=== PATIENT | female | born 1995 | race Two or more races ===

== ENCOUNTER 2018-06-30 19:50 | Inpatient (IN) | payer SELFPAY ==
[2018-06-30] MEDS ORDERED: Nalbuphine 20 MG/ML 1 ML Syringe IVPUSH PRN (21:19)
[2018-06-30] MEDS ORDERED: Sodium Chloride 0.9% 10 ML Syringe FLUSH PRN (21:19)
[2018-06-30] MEDS ORDERED: Oxytocin/Lactated Ringers 10 UNIT/1,000 ML BAG IV SCH ×2 (21:30→23:36)
[2018-06-30] MEDS ORDERED: Lidocaine 1.5% with EPINEPHrine 1:200,000 5 ML Amp ONE (22:00)
[2018-06-30] MEDS ORDERED: Bupivacaine 0.25% 10 ML SDV ONE (22:00)
[2018-06-30] MEDS ORDERED: fentaNYL 100 MCG/2 ML SDV EPIDUR PRN (22:24)
[2018-06-30] MEDS ORDERED: ePHEDrine 50 MG/ML SDV IVPUSH PRN (22:24)
[2018-06-30] MEDS ORDERED: diphenhydrAMINE 50 MG/ML SDV IVPUSH PRN (22:24)
[2018-06-30] MEDS ORDERED: Ondansetron 4 MG/2 ML SDV IVPUSH PRN (22:24)
--- NOTE | 2018-06-30 22:24 | PCM.PREANE ---
Preanesthetic Assessment - Procedure Proposed Procedure: CHANTAL - Anesthesia/Transfusion/Family Hx Anesthesia History: No Prior Anesthesia Family History of Anesthesia Reaction: No Transfusion History: No Prior Transfusion(s) - Review of Systems General: No Symptoms Pulmonary: No Symptoms Cardiovascular: No Symptoms Gastrointestinal: No Symptoms Neurological: No Symptoms Other: Reports: None - Physical Assessment NPO Status Date: 06/30/18 NPO Status Time: 20:00 O2 Sat by Pulse Oximetry: 97 Respiratory Rate: 16 Vital Signs: Last Vital Signs Temp 36.8 C 06/30/18 21:19 Pulse 76 06/30/18 21:19 Resp 16 06/30/18 21:19 BP 111/76 06/30/18 21:19 Pulse Ox 97 06/30/18 21:19 Height: 1.57 m Weight: 70.307 kg ASA Class: 2 Mental Status: Alert & Oriented x3 Airway Class: Mallampati = 2 Dentition: Reports: Normal Dentition Thyro-Mental Finger Breadths: 3 Mouth Opening Finger Breadths: 3 ROM/Head Extension: Full Lungs: Clear to Auscultation, Normal Respiratory Effort Cardiovascular: Regular Rate, Regular Rhythm - Lab Values: Laboratory Last Values WBC 10.07 K/mm3 (3.98-10.04) H 06/30/18 20:30 RBC 4.56 M/mm3 (3.98-5.22) 06/30/18 20:30 Hgb 13.4 gm/L (11.2-15.7) 06/30/18 20:30 Hct 40.4 % (34.1-44.9) 06/30/18 20:30 MCV 88.6 fl (79.4-94.8) 06/30/18 20:30 MCH 29.4 pg (25.6-32.2) 06/30/18 20:30 MCHC 33.2 g/dl (32.2-35.5) 06/30/18 20:30 RDW Std Deviation 43.7 fL (36.4-46.3) 06/30/18 20:30 Plt Count 248 K/mm3 (182-369) 06/30/18 20:30 MPV 12.8 fl (9.4-12.3) H 06/30/18 20:30 - Allergies Allergies/Adverse Reactions: Allergies Allergy/AdvReac Type Severity Reaction Status Date / Time No Known Allergies Allergy Verified 06/30/18 21:19 - Blood Blood Available: No Product(s) Available: None - Anesthesia Plan Pre-Op Medication Ordered: None - Acknowledgements Anesthesia Type Planned: Epidural Pt an Appropriate Candidate for the Planned Anesthesia: Yes Alternatives and Risks of Anesthesia Discussed w Pt/Guardian: Yes Pt/Guardian Understands and Agrees with Anesthesia Plan: Yes PreAnesthesia Questionnaire - Past Health History Medical/Surgical History: Denies 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
[2018-06-30] MEDS ORDERED: fentaNYL/Bupivacaine-NS 2 MCG/ML-0.125%/PF 100 ML Bag EP SCH (22:30)
[2018-06-30] MEDS: Lactated Ringers 1,000 ML IV SCH (23:53)
[2018-07-01] MEDS: Lactated Ringers 1,000 ML IV SCH ×2 (02:46→04:07)
--- NOTE | 2018-07-01 06:56 | HP ---
DATE OF ADMISSION: 06/30/2018 ADMISSION DIAGNOSIS: 40 and 0/7th weeks intrauterine , spontaneous rupture of membranes, early active labor. HISTORY OF PRESENT ILLNESS: The patient is a 23-year-old 1, para 0, female with an MODE of 07/05/2018 per ultrasound done at her first place of care in [place]. This places her at 40 and 0/7 weeks' gestational age. That ultrasound is supported by 2 other ultrasounds done on 02/11/2018 and 03/11/2018. She reports a small gush of fluid on the morning of 06/29/2018. Has continued to have a small amount of leakage since that time. She is kameron every 10-15 minutes. Her cervix has changed from a dilation of 1-2 cm, 50% effaced, soft, - 2, mid position to 4 cm, 80% effaced, -2 station, mid position, and cephalic presentation. heart tones are reassuring. Contractions occurring every 10-15 minutes. Mild to moderate in intensity. 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 MODE 07/05/2018 per first ultrasound. COURSE: The patient transferred her care to our clinic on 02/02/2018 at 18 and 6/7 weeks. Size correlated with dates at that time. She was seen for regular care. Her first weight was 137.4 pounds. Her final weight was 154.4 pounds for a 37-pound weight gain. course is unremarkable. There is a language barrier as the patient only speaks Occitan. She has a friend who does a fair amount of translation for her. The patient had first ultrasound at 20 and 0/7 weeks, which showed right-sided choroid plexus cyst, 7 mm in diameter. Also had an eccentric cord insertion. That was followed up a month later and choroid plexus cyst was no longer seen. No mention of eccentric cord at that time. Her vital signs were stable throughout the course. Her fundal height growth was appropriate. Baby was in vertex presentation. Her group B strep screen is negative. She had a normal 1-hour GTT. Her [place] depression screen score was 0 on a scale of 30. Chlamydia retest was negative, having been positive early in the and for which she received treatment. LABORATORY TESTING: In shows blood to be O positive with a negative antibody screen. Initial hematocrit was 38.1. She is rubella immune. RPR is nonreactive. Culture was unremarkable. HIV and hepatitis B surface antigen were both negative. Chlamydia and gonorrhea were positive and negative respectively. The patient was treated per protocol. One-hour GTT was 91. Second trimester hemoglobin was 12.6 and platelets were 267,000. Group B strep screen was negative. ALLERGIES: None. CURRENT MEDICATIONS: vitamins 1 p.o. daily. PAST MEDICAL HISTORY: Unremarkable. FAMILY HISTORY: Mother is alive with kidney disease, on dialysis, lives in [place]. Father is alive and well. Two brothers and 1 sister are alive and well. Maternal grandfather is secondary to an assassination. Maternal grandmother is secondary to an assassination. Paternal grandfather is alive and well. Paternal grandmother is alive and well. Family history of cancer, none. No -related problems. SOCIAL HISTORY: The patient is . is Remi Dominguez. They live in [place], [place]. She is a [id number] . No high school education. She speaks Occitan. No significant use of alcohol, drugs, or tobacco noted. REVIEW OF SYSTEMS: GENERAL: The patient is a well-developed, well-nourished, pleasant female who appears in good spirits. HEENT: Unremarkable. SKIN: Unremarkable. CARDIOVASCULAR: No chest pain or exercise intolerance. RESPIRATORY: No shortness of breath or infectious symptoms. BREASTS: Changes associated with . The patient plans to breast feed. GI: Negative. : Changes associated with including increased fundal height. EXTREMITIES/MUSCULOSKELETAL: Occasional bilateral lower extremity edema. NEUROLOGICAL: Negative. PHYSICAL EXAMINATION: GENERAL: The patient is a well-developed, well-nourished, pleasant female, in no acute distress. She speaks Occitan only. On last evaluation clinic on 06/27/2018, her weight was 154.4 pounds. Blood pressure 107/60. heart rate was 145. Height is 5 feet 2 inches. Pregravid weight was 137.4. Pregravid body mass index was 24.1. SKIN: Warm and dry without lesions. HEENT: Neck and back within normal limits. LUNGS: Clear with good breath sounds in all lung isabel. CARDIOVASCULAR: Regular rate and rhythm without murmurs. BREASTS: Exam is deferred. ABDOMEN: Protuberant with this with last fundal height in clinic at 38 cm. Baby in vertex presentation. Cervix is 4 cm, 80% effaced, -2 station, mid position, soft, cephalic presentation, evidence of rupture of membranes grossly. EXTREMITIES AND NEUROLOGICAL: Grossly within normal limits. ASSESSMENT: 1. 40 and 0/7th week intrauterine , rupture of membranes possibly since yesterday morning, which is 36 hours. The patient in early labor with contractions every 10-15 minutes. 2. Group B strep screen negative. 3. The patient is okay with epidural as labor analgesia. 4. The patient plans to breastfeed. PLAN: 1. We will recommend augmentation of labor because of the patient's duration of rupture of membranes and increased risk of infection. 2. Group B strep is negative. Therefore, no prophylactic antibiotics are necessary. 3. Epidural p.r.n. for labor and analgesia. 4. Support incision. 5. CBC and RPR per protocol. MMODAL /[id number]
--- NOTE | 2018-07-01 11:59 | PCM.SN ---
- Free Text/Narrative Note: Mala is a 23-year-old 1 now para 1001 female with an MODE of 06/30/2018 admitted last evening 06/30/2018 in active labor with spontaneous rupture membranes. Underwent epidural for labor analgesia. She slowly progressed throughout the night and became completely dilated at approximately 1030 hrs. on 07/01/2018. She pushed for approximate 1 hour. She was noted at the end of the labor to have meconium-stained amniotic fluid. She then delivered a viable, fonseca, female with Apgars of 8 and 9, weight of 3030 g (6 pounds, 10.9 ounces), a length of 19.0 inches in a left occiput anterior position. Baby was placed on mom's abdomen for a moment while the cord was clamped 2 and then cut by the baby's father. Taken to the warmer immediately thereafter for Dr. Fernández and to attend to the baby because of the meconium- stained amniotic fluid. The perineum had a small first-degree laceration which was repaired with 3-0 Monocryl suture in 2 interrupted [id number] stitches. Epidural was used for anesthetic. Umbilical cord had 3 vessels. Cord blood was obtained. The placenta delivered in a Arriaza presentation, appeared complete and intact and was discarded per patient desire. Estimated blood loss was 100 mL. Patient plans to breast-feed. Condition: Good
[2018-07-01] MEDS ORDERED: Witch Hazel Medicated Pads 100/Jar TOP PRN (13:32)
[2018-07-01] MEDS ORDERED: Docusate Sodium 100 MG Cap PO PRN (13:32)
[2018-07-01] MEDS ORDERED: Acetaminophen 325 MG Tab PO PRN (13:32)
[2018-07-01] MEDS ORDERED: Benzocaine/Menthol 20%-0.5% Spray 56 GM Canister TOP PRN (13:32)
[2018-07-01] MEDS ORDERED: Lanolin 100% Cream 7 GM Tube TOP PRN (13:32)
[2018-07-01] MEDS: Ibuprofen 600 MG Tab PO PRN (14:52)
[2018-07-02] MEDS: Ibuprofen 600 MG Tab PO PRN ×2 (01:23→19:53)
[2018-07-02] MEDS ORDERED: Prenatal Multivitamin with Calcium/Folic Acid/Iron Tab PO SCH (09:00)
--- NOTE | 2018-07-02 09:10 | PCM.SN ---
- Free Text/Narrative Note: note: Patient is doing well in the period. Minimal lochia, voiding well, ambulated without problems. Nursing without concerns. Patient is afebrile, vital signs are stable Abdomen is flat, soft, uterus is below the umbilicus and is firm and nontender. Legs are nontender. Assessment: recovery going well. Plan: Routine care. Patient be discharged home within the next 24-48 hours.
--- NOTE | 2018-07-02 20:42 | PCM48HPAN ---
Post Anesthesia Note - EVALUATION WITHIN 48HRS OF ANESTHETIC Vital Signs in Normal Range: Yes Patient Participated in Evaluation: Yes Respiratory Function Stable: Yes Airway Patent: Yes Cardiovascular Function Stable: Yes Hydration Status Stable: Yes Pain Control Satisfactory: Yes Nausea and Vomiting Control Satisfactory: Yes Mental Status Recovered: Yes Resp Rate: 16
--- NOTE | 2018-07-03 07:53 | PCM.DCSUM1 ---
Discharge Summary - Hospital Course Free Text/Narrative:: Mala is a 23-year-old 1 now para 1001 female with an MODE of 06/30/2018 admitted on 06/30/2018 in active labor with spontaneous rupture membranes. Underwent epidural for labor analgesia. She slowly progressed throughout the night and became completely dilated at approximately 1030 hrs. on 07/01/2018. She pushed for approximate 1 hour. She was noted at the end of the labor to have meconium-stained amniotic fluid. She then delivered a viable, fonseca, female with Apgars of 8 and 9, weight of 3030 g (6 pounds, 10.9 ounces), a length of 19.0 inches in a left occiput anterior position. Baby was placed on mom's abdomen for a moment while the cord was clamped 2 and then cut by the baby's father. Taken to the warmer immediately thereafter for Dr. Fernández and to attend to the baby because of the meconium-stained amniotic fluid. The perineum had a small first-degree laceration which was repaired with 3-0 Monocryl suture in 2 interrupted [id number] stitches. Epidural was used for anesthetic. Umbilical cord had 3 vessels. Cord blood was obtained. The placenta delivered in a Arriaza presentation, appeared complete and intact and was discarded per patient desire. Estimated blood loss was 100 mL. Patient plans to breast-feed. patient. There is somewhat of a language barrier but her does speak Stat[place] and her friend is present. She is recovered nicely. She is bottle feeding the baby. No signs and stable. She has been afebrile. His minimal lochia, she is ambulating well and voiding without problems. She is desiring discharge home. Condition: Good - Discharge Data Discharge Date: 07/03/18 Discharge Disposition: Home, Self-Care 01 Condition: Good - Patient Instructions Diet: Regular Diet as Tolerated Activity: As Tolerated (No intercourse or tampons until bleeding resolves) Driving: Do Not Drive (2 days) Showering/Bathing: May Shower (May take a bath) - Discharge Plan Home Medications: Home Meds Acetaminophen [Tylenol] 650 mg PO Q4H PRN tablet 07/03/18 [Rx] Ibuprofen [Motrin] 600 mg PO Q4H PRN tablet 07/03/18 [Rx] Vit with Ca/FA/Iron [ Plus Iron] 1 each PO DAILY tablet [Rx] Patient Handouts: Home Care Instructions for Mom Referrals: Aristides Vogel MD [Primary Care Provider] - (Return to clinicDr. Jaspreet maradiaga CNP3 weeks) - Discharge Summary/Plan Comment DC Time >30 min.: No Discharge Summary/Plan Comment: Discharge instructions: 1. Discharge home 2. Diet, activity and follow-up discussed with patient. Recommend nursing diet with increased calories and calcium. 3. Precautions given concern increased pain, bleeding, temperature, signs/ symptoms of DVT/PE. 4. Medications per home medication was printed, discussed with and given to the patient. 5. Return to clinic-Dr. Vogel or Shelia maradiaga-CNP-[facility] [place] in 3 weeks. Diagnosis: Term -delivered Condition: Good - Patient Data Vitals - Most Recent: Last Vital Signs Temp 36.3 C 07/03/18 03:00 Pulse 84 07/03/18 03:00 Resp 14 07/03/18 03:00 BP 106/79 07/03/18 03:00 Pulse Ox 100 07/03/18 03:00 Weight - Most Recent: 70.307 kg Med Orders - Current: Current Medications Acetaminophen (Tylenol) 650 mg PO Q4H PRN PRN Reason: mild pain or fever Benzocaine/Menthol (Dermoplast Pain Relief [place]) 0 gm TOP ASDIRECTED PRN PRN Reason: Perineal Comfort Measure Last Admin: 07/01/18 14:52 Dose: 1 can Docusate Sodium (Colace) 100 mg PO BID PRN PRN Reason: Constipation Emollient Ointment (Lansinoh Hpa) 0 gm TOP ASDIRECTED PRN PRN Reason: Sore Nipples Last Admin: 07/02/18 01:23 Dose: 1 applic Ibuprofen (Motrin) 600 mg PO Q4H PRN PRN Reason: Mild pain or fever Last Admin: 07/02/18 19:53 Dose: 600 mg Prenat Multivit/[place]/Iron/Folic Ac ( Plus Iron) 1 each PO DAILY LISA Last Admin: 07/02/18 12:02 Dose: 1 each Witch [place] (Tucks) 1 pad TOP ASDIRECTED PRN PRN Reason: Hemorrhoid pain Last Admin: 07/01/18 14:52 Dose: 1 tub Discontinued Medications Diphenhydramine HCl (Benadryl) 25 mg IVPUSH Q6H PRN PRN Reason: Pruritis Ephedrine Sulfate (Ephedrine Sulfate) 5 mg IVPUSH ASDIRECTED PRN PRN Reason: Hypotension Last Admin: 07/01/18 02:57 Dose: 5 mg Fentanyl (Sublimaze) 100 mcg EPIDUR Q3H PRN PRN Reason: Pain Last Admin: 07/01/18 02:22 Dose: 100 mcg Fentanyl/Bupivacaine HCl (Sassqofd-Yason-Gw 2 Mcg/Ml-0.125%) 100 ml EP ASDIRECTED LISA Last Admin: 07/01/18 02:22 Dose: 100 ml Lactated Ringer's (Ringers, Lactated) 1,000 mls @ 100 mls/hr IV ASDIRECTED LISA Last Admin: 07/01/18 04:07 Dose: 100 mls/hr Oxytocin 20 unit/ Lactated (Ringer's) 1,002 mls @ 6.01 mls/hr IV TITRATE LISA; Protocol Oxytocin/Lactated Ringer's (Pitocin In Lr 10 Units/1,000 Ml) 10 unit in 1,000 mls @ 500 mls/hr IV .CONTINUOUS LISA Oxytocin/Lactated Ringer's (Pitocin In Lr 10 Units/1,000 Ml) 10 unit in 1,000 mls @ 12 mls/hr IV TITRATE LISA; Protocol Last Titration: 07/01/18 11:33 Dose: 250 mls/hr Nalbuphine HCl (Nubain) 10 mg IVPUSH Q2H PRN PRN Reason: pain Ondansetron HCl (Zofran) 4 mg IVPUSH ONETIME PRN PRN Reason: Nausea/Vomiting Sodium Chloride (Saline Flush) 10 ml FLUSH ASDIRECTED PRN PRN Reason: Keep Vein Open
== END 2018-07-03 11:15 | disposition home or self-care (01) | DRG 807 ==
LOC: JD.OBCHECK 19:50 → JD.OB 19:52 → JD.OBCHECK 20:59 → UNDOADMOB 21:00 → JD.OB 21:00 → OBSVTOIN 07-01 11:31 → INTOOBSV 07-01 11:31 → JD.OB 07-01 11:31
PROVIDERS: ADMIT Obstetrics & Gynecology; ATTEND Obstetrics & Gynecology
PROC: 0HQ9XZZ Repair Perineum Skin, External Approach (ICD-10-PCS; principal; 2018-07-01)
PROC: 6A550ZT Pheresis of Cord Blood Stem Cells, Single (ICD-10-PCS; principal; 2018-07-01)
PROC: 10E0XZZ Delivery of Products of Conception, External Approach (ICD-10-PCS; principal; 2018-07-01)
PROC: 3E0R3BZ Introduction of Anesthetic Agent into Spinal Canal, Percutaneous Approach (ICD-10-PCS; 2018-07-01)
PROC: 00HU33Z Insertion of Infusion Device into Spinal Canal, Percutaneous Approach (ICD-10-PCS; 2018-07-01)
DX: O77.0 Labor and delivery complicated by meconium in amniotic fluid (principal); Z37.0 Single live birth; O70.0 First degree perineal laceration during delivery; Z3A.40 40 weeks gestation of pregnancy
CPT/HCPCS: 01967; 36415; 51702; 59025; 59409; 85027; 86592; A9270-GY; J2590; J3010; J3490; J7120

== ENCOUNTER 2019-12-28 09:32 | Inpatient (IN) | payer OTHER ==
[2019-12-28] MEDS ORDERED: Sodium Chloride 0.9% 10 ML Syringe FLUSH PRN (10:02)
[2019-12-28] MEDS ORDERED: Nalbuphine 10 MG/ML Syringe IVPUSH PRN (10:02)
[2019-12-28] MEDS ORDERED: Oxytocin/Lactated Ringers 10 UNIT/1,000 ML BAG IV SCH ×2 (10:15)
--- NOTE | 2019-12-28 13:51 | PCM.LDHP ---
L&D History of Present Illness - General Date of Service: 12/28/19 Admit Problem/Dx: Patient Status Order with Admit Dx/Problem 12/28/19 09:36 Patient Status [ADT] Routine 12/28/19 10:03 Patient Status [ADT] Routine Admission Diagnosis/Problem Admission Diagnosis/Problem 12/28/19 13:48 Mala is a 24 year old -0-0-1 Citizen Of [place] speaking female presenting at 40 5/7 weeks gestations with an MODE pf 12/23/2019 for signs of labor. 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 Cervix upon admission is cm, % effaced, , position, and station, Marcial score of . Mala has been feeling well. Consistent contractions began last night, occurring 2 hours apart. Prior to admission, she states they were occurring every 5 minutes. She has been taking a daily vitamin. While in labor and delivery she was unsure if she wanted to have an epidural or not, but decided to proceed with an epidural. Group B strep screen done previously was negative. OBGYN: Menarche began at age 15. Her cycles occur every 28 days. LMP was 03/18/2019. MODE of 12/23/2019. US on 08/14/2019 revealed a posterior placenta, and estimated weight at the 10th percentile - size<dates. Follow-up US on 09/27/2019 showed normal interval growth but weight at the 10th percentile. Her most recent US on 10/24/2019 revealed normal growth-60% with a normal and anatomy, demonstrating normal interval growth. Her infection history negative with the exception of chlamydia which she was treated for during the beginning of her . Her previous pregnancies include: 1. Female born on 07/01/2018 at 40 1/7 weeks gestation via with epidural at [facility] in [place], 6 lbs 11 oz. Course: Mala was seen for her first visit on 07/19/2019. She was seen on a regular basis throughout the with stable vital signs. Blood pressures were stable 92-110/52-60 range throughout her . Fundal heights gener bipin measured smaller than gestational age, which led to her having a growth US. growth was originally size< age and in the 10th percentile as noted above, however her most recent US showed normal growth-60. Pre- weight was 135 lbs. Weight today is 162 lbs 14.4 oz, a total increase of 27 lbs and 14.4 oz during . The patient did have a small right upper lobe thyroid nodule noted at her first exam on 08/28/2019, approximately 3 mm in size, with some cold intolerance and constipation. TSH at that time was wnl with a value of 1.065 mlU/L. GBS screen was negative on 11/20/2019 was negative. Influenza vaccine was administered on 07/19/2019 and TDAP was administered on 10/23/2019. She has been taking a daily vitamin. Once in Labor and Delivery, the patient voiced that she wanted an epidural, which she received this afternoon. She does plan to breast feed. Laboratory Testing in : Blood type is O+ with a negative antibody screen. At her first visit on 07/19/2019 her Hgb was 13.4 g/dL with a platelet count of 255,000/uL. Rubella titer showed immunity. Urine culture screen showed "mixed guanakito suggestive of contamination," however culture report continued revealed yeast further identified by [facility] as celestine glabrata. VLDR/RPR was nonreactive. HBsAg, HIV, chlamydia, and gonorrhea testing were all negative. TSH test was wnl as noted above. Second trimester Hbg was 11.4 g/dL with a platelet count of 223,000/uL. 1 hour GGT was wnl with a value of 122. Third trimester VDRL/RPR was nonreactive as well. GBS screen was negative on 11/20/2019 was negative. Additional Lab testing: Serum hcg on 06/19/2019 was 19993.0 and progesterone was 50.96. Wet prep done on 07/19/2019. 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: Social & Family History - Family History Family Medical History: Noncontributory Other Family History: Obtained on 02/02/2018, no changes noted when questioned on 12/28/2019 Mother is alive, kidney disease on dialysis, lives in [place] Father is alive and well 2 Brothers and 1 sister: alive and well MGF is , assassinated MGM is , assassinated PGF is alive and well PGM is alive and well No family hisotry of cancer, related issues, etc - Tobacco Use Smoking Status *Q: Never Smoker Second Hand Smoke Exposure: No - Caffeine Use Caffeine Use: Reports: None - Alcohol Use Alcohol Use History: No - Recreational Drug Use Recreational Drug Use: No H&P Review of Systems - Review of Systems: Review Of Systems: See Below Free Text/Narrative: General: No fevers or chills Head: No headaches, dizziness, or lightheadedness Eyes: No eye pain or discharge Ears: No ear pain or discharge Nose: No rhinorrhea or congestion Throat: No sore throat or dysphagia Cardiovascular: No chest pain or palpitations Respiratory: No shortness of breath Gastrointestinal: Contractions Genitourinary: No vaginal itching, discharge, bleeding, or leakage of fluid Musculoskeletal: Has had some lower extremity edema and pain throughout L&D Exam - Exam Exam: See Below - Vital Signs Vital Signs: Last Vital Signs Temp 97.1 F 12/28/19 09:36 Pulse 71 12/28/19 09:36 Resp 12 12/28/19 09:36 BP 102/65 12/28/19 09:36 Pulse Ox Weight: 162 lb 14.4 oz - Exam General: Alert, Oriented, Mild Distress (Only during contractions) HEENT: Conjunctiva Clear, Hearing Intact, Nares Patent Neck: Supple Lungs: Clear to Auscultation, Normal Respiratory Effort Cardiovascular: Regular Rate, Regular Rhythm, Normal S1, Normal S2 GI/Abdominal Exam: Normal Bowel Sounds Extremities: No Pedal Edema Skin: Warm, Dry, Intact Neurological: Normal Tone Psychiatric: Alert, Normal Affect, Normal Mood - Patient Data Lab Results Last 24 hrs: Laboratory Results - last 24 hr 12/28/19 12/28/19 Range/Units 10:25 10:25 WBC 12.87 H (3.98-10.04) K/mm3 RBC 4.43 (3.98-5.22) M/mm3 Hgb 11.5 (11.2-15.7) gm/dl Hct 36.9 (34.1-44.9) % MCV 83.3 D (79.4-94.8) fl MCH 26.0 (25.6-32.2) pg MCHC 31.2 L (32.2-35.5) g/dl RDW Std Deviation 41.8 (36.4-46.3) fL Plt Count 246 (182-369) K/mm3 MPV 11.8 (9.4-12.3) fl Neut % (Auto) 74.0 H (34.0-71.1) % Lymph % (Auto) 17.2 L (19.3-51.7) % [place] % (Auto) 5.8 (4.7-12.5) % Eos % (Auto) 1.5 (0.7-5.8) Baso % (Auto) 0.6 (0.1-1.2) % Neut # (Auto) 9.51 H (1.56-6.13) K/mm3 Lymph # (Auto) 2.22 (1.18-3.74) K/mm3 [place] # (Auto) 0.75 H (0.24-0.36) K/mm3 Eos # (Auto) 0.19 (0.04-0.36) K/mm3 Baso # (Auto) 0.08 (0.01-0.08) K/mm3 Manual Slide Review Normal smear Blood Type O POSITIVE Gel Antibody Screen Negative Result Diagrams: 12/28/19 10:25 Problem List Initiated/Reviewed/Updated: Yes Orders Last 24hrs: Active Orders 24 hr Category Date Time Status Patient Status [ADT] Routine ADT 12/28/19 10:03 Active Activity as Tolerated [RC] PFP Care 12/28/19 10:03 Active Communication Order [RC] ASDIRECTED Care 12/28/19 10:03 Active Heart Tones [RC] ASDIRECTED Care 12/28/19 10:03 Active Non Stress Test [RC] PER UNIT ROUTINE Care 12/28/19 09:36 Active Notify Provider [RC] PFP Care 12/28/19 10:03 Active Notify Provider [RC] PRN Care 12/28/19 10:03 Active Peripheral IV Care [RC] . DIRECTED Care 12/28/19 10:03 Active Vital Signs [RC] 03,09,15,21 Care 12/28/19 09:36 Active Regular Diet [DIET] Diet 12/28/19 Lunch Active RAPID PLASMA REAGIN,RPR [CHEM] Routine Lab 12/28/19 10:25 Received Lactated Ringers [Ringers, Lactated] 1,000 ml Med 12/28/19 10:15 Active IV ASDIRECTED Nalbuphine [Nubain] Med 12/28/19 10:02 Active 10 mg IVPUSH Q2H PRN Oxytocin/Lactated Ringers [Pitocin in LR 10 Units/1,000 Med 12/28/19 10:15 Active ML] 10 unit in 1,000 ml IV .CONTINUOUS Oxytocin/Lactated Ringers [Pitocin in LR 10 Units/1,000 Med 12/28/19 10:15 Active ML] 10 unit in 1,000 ml IV TITRATE Sodium Chloride 0.9% [Saline Flush] Med 12/28/19 10:02 Active 10 ml FLUSH ASDIRECTED PRN Electronic Heart Tones Ext w TOCO [WOMSER] Oth 12/28/19 10:03 Ordered Routine Electronic Heart Tones Internal [WOMSER] Per Unit Oth 12/28/19 10:03 Ordered Routine Peripheral IV Insertion Adult [OM.PC] Routine Ot 12/28/19 10:03 Ordered Resuscitation Status Routine Resus Stat 12/28/19 09:35 Ordered Medication Orders Lactated Ringer's (Ringers, Lactated) 1,000 mls @ 100 mls/hr IV ASDIRECTED LISA Oxytocin/Lactated Ringer's (Pitocin In Lr 10 Units/1,000 Ml) 10 unit in 1,000 mls @ 12 mls/hr IV TITRATE LISA; Protocol Oxytocin/Lactated Ringer's (Pitocin In Lr 10 Units/1,000 Ml) 10 unit in 1,000 mls @ 500 mls/hr IV .CONTINUOUS LISA Nalbuphine HCl (Nubain) 10 mg IVPUSH Q2H PRN PRN Reason: Pain Sodium Chloride (Saline Flush) 10 ml FLUSH ASDIRECTED PRN PRN Reason: Keep Vein Open Assessment/Plan Comment:: 1. female at 40 5/7 weeks gestation - admitted to labor and delivery due to progressive contractions. 2. Patient epidural request - Epidural completed this afternoon upon request.
[2019-12-28] MEDS: Lactated Ringers 1,000 ML IV SCH ×3 (14:21→15:22)
[2019-12-28] MEDS ORDERED: ePHEDrine 50 MG/ML SDV IVPUSH PRN (14:49)
[2019-12-28] MEDS ORDERED: diphenhydrAMINE 50 MG/ML SDV IVPUSH PRN (14:49)
[2019-12-28] MEDS ORDERED: fentaNYL 100 MCG/2 ML SDV EPIDUR PRN (14:49)
[2019-12-28] MEDS ORDERED: Bupivacaine/fentaNYL/NS 100 ML Bag EPIDUR PRN (14:49)
--- NOTE | 2019-12-28 15:18 | PCM.PREANE ---
Preanesthetic Assessment - Procedure Proposed Procedure: epidural - Anesthesia/Transfusion/Family Hx Anesthesia History: No Prior Anesthesia Family History of Anesthesia Reaction: No Transfusion History: No Prior Transfusion(s) - Review of Systems General: Fatigue Pulmonary: No Symptoms Cardiovascular: No Symptoms Gastrointestinal: Abdominal Pain (labor) Neurological: No Symptoms Other: Reports: None - Physical Assessment Vital Signs: Last Vital Signs Temp 36.2 C 12/28/19 09:36 Pulse 71 12/28/19 09:36 Resp 12 12/28/19 09:36 BP 102/65 12/28/19 09:36 Pulse Ox Height: 1.57 m Weight: 73.89 kg ASA Class: 2 Mental Status: Alert & Oriented x3 Airway Class: Mallampati = 1 Dentition: Reports: Normal Dentition Thyro-Mental Finger Breadths: 3 Mouth Opening Finger Breadths: 3 ROM/Head Extension: Full Lungs: Clear to Auscultation, Normal Respiratory Effort Cardiovascular: Regular Rate, Regular Rhythm - Lab Values: Laboratory Last Values WBC 12.87 K/mm3 (3.98-10.04) H 12/28/19 10:25 RBC 4.43 M/mm3 (3.98-5.22) 12/28/19 10:25 Hgb 11.5 gm/dl (11.2-15.7) 12/28/19 10:25 Hct 36.9 % (34.1-44.9) 12/28/19 10:25 MCV 83.3 fl (79.4-94.8) D 12/28/19 10:25 MCH 26.0 pg (25.6-32.2) 12/28/19 10:25 MCHC 31.2 g/dl (32.2-35.5) L 12/28/19 10:25 RDW Std Deviation 41.8 fL (36.4-46.3) 12/28/19 10:25 Plt Count 246 K/mm3 (182-369) 12/28/19 10:25 MPV 11.8 fl (9.4-12.3) 12/28/19 10:25 Neut % (Auto) 74.0 % (34.0-71.1) H 12/28/19 10:25 Lymph % (Auto) 17.2 % (19.3-51.7) L 12/28/19 10:25 [place] % (Auto) 5.8 % (4.7-12.5) 12/28/19 10:25 Eos % (Auto) 1.5 (0.7-5.8) 12/28/19 10:25 Baso % (Auto) 0.6 % (0.1-1.2) 12/28/19 10:25 Neut # (Auto) 9.51 K/mm3 (1.56-6.13) H 12/28/19 10:25 Lymph # (Auto) 2.22 K/mm3 (1.18-3.74) 12/28/19 10:25 [place] # (Auto) 0.75 K/mm3 (0.24-0.36) H 12/28/19 10:25 Eos # (Auto) 0.19 K/mm3 (0.04-0.36) 12/28/19 10:25 Baso # (Auto) 0.08 K/mm3 (0.01-0.08) 12/28/19 10:25 Manual Slide Review Normal smear 12/28/19 10:25 Blood Type O POSITIVE 12/28/19 10:25 Gel Antibody Screen Negative 12/28/19 10:25 - Allergies Allergies/Adverse Reactions: Allergies Allergy/AdvReac Type Severity Reaction Status Date / Time No Known Allergies Allergy Verified 12/28/19 09:40 - Anesthesia Plan Pre-Op Medication Ordered: None - Acknowledgements Anesthesia Type Planned: Epidural Pt an Appropriate Candidate for the Planned Anesthesia: Yes Alternatives and Risks of Anesthesia Discussed w Pt/Guardian: Yes Pt/Guardian Understands and Agrees with Anesthesia Plan: Yes PreAnesthesia Questionnaire - Past Health History Medical/Surgical History: Denies Medical/Surgical History (3mm right upper lobe thyroid nodule found on 07/19/2019, TSH was normal at that time.) Gastrointestinal History: Reports: 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 Smoking Status *Q: Never Smoker Second Hand Smoke Exposure: No Recreational Drug Use History: No - HOME MEDS Home Medications: Home Meds Vit with Ca/FA/Iron [ Plus Iron] 1 each PO DAILY tablet 07/03/18 [Rx] - CURRENT (IN HOUSE) MEDS Current Meds: Current Medications Diphenhydramine HCl (Benadryl) 25 mg IVPUSH Q6H PRN PRN Reason: pruritis Ephedrine Sulfate (Ephedrine Sulfate) 5 mg IVPUSH ASDIRECTED PRN PRN Reason: Hypotension Fentanyl (Sublimaze) 100 mcg EPIDUR Q3H PRN PRN Reason: Pain Last Admin: 12/28/19 14:55 Dose: 100 mcg Documented by: Fentanyl/Bupivacaine HCl (Fentanyl/Bupivacaine/Ns 2 Mcg-0.125% 100 Ml) 100 ml EPIDUR ASDIRECTED PRN PRN Reason: Pain Last Admin: 12/28/19 14:56 Dose: 100 ml Documented by: Lactated Ringer's (Ringers, Lactated) 1,000 mls @ 100 mls/hr IV ASDIRECTED LISA Last Admin: 12/28/19 14:41 Dose: 100 mls/hr Documented by: Oxytocin/Lactated Ringer's (Pitocin In Lr 10 Units/1,000 Ml) 10 unit in 1,000 mls @ 12 mls/hr IV TITRATE LISA; Protocol Oxytocin/Lactated Ringer's (Pitocin In Lr 10 Units/1,000 Ml) 10 unit in 1,000 mls @ 500 mls/hr IV .CONTINUOUS LISA Nalbuphine HCl (Nubain) 10 mg IVPUSH Q2H PRN PRN Reason: Pain Sodium Chloride (Saline Flush) 10 ml FLUSH ASDIRECTED PRN PRN Reason: Keep Vein Open
--- NOTE | 2019-12-28 18:04 | PCM.SN.2 ---
- Free Text/Narrative Note: Delivery note: Mala is a 24 year old -0-0-1 [place] speaking female presenting at 40 5/7 weeks gestations with an MODE pf 12/23/2019 for signs of labor. Is mitigated in active labor. She underwent an epidural for labor analgesia. She had good pain relief with this. AROM was undertaken approximately half hour before she delivered to facilitate increase in contraction intensity. Very light meconium-stained amniotic fluid was noted. No particulate matter was present. She progressed steadily to complete cervical dilation by approximately 1700 hrs. She began pushing and within a few contractions and delivered a viable, fonseca, male with Apgars of 8 and 9, weight of 3030 g (6 pounds 10.9 ounces) and a length of 19.5 inches at 1737 hrs. On 12/28/2019. She delivered in a direct occiput anterior position over an intact perineum. The baby was placed on mom's abdomen and the nose and mouth were bulb suctioned and the baby was dried with warm blanket. Pitocin was started and run at 500 mL an hour to facilitate increase in uterine tone and decrease likelihood of uterine bleeding. The umbilical cord was allowed to pulsate for approximately 2 minutes then was clamped 2 and cut by the baby's father. Cord blood was obtained. The umbilical cord had 3 vessels present within it. The perineum and vagina were intact and no suturing was required. The placenta delivered in a Arriaza presentation at 1741 hrs., appeared intact and complete and was discarded per patient desire. Estimated blood loss was 100 mL. Patient plans to breast-feed. Condition: Good.
[2019-12-28] MEDS ORDERED: Witch Hazel Medicated Pads 40/Jar TOP PRN (18:15)
[2019-12-28] MEDS ORDERED: Docusate Sodium 100 MG Cap PO PRN (18:15)
[2019-12-28] MEDS ORDERED: Benzocaine/Menthol 20%-0.5% Spray 56 GM Canister TOP PRN (18:15)
[2019-12-28] MEDS: Acetaminophen 325 MG Tab PO PRN (22:53)
[2019-12-29] MEDS ORDERED: Bupivacaine 0.25% 10 ML SDV ONE
[2019-12-29] MEDS: Acetaminophen 325 MG Tab PO PRN (03:07)
[2019-12-29] MEDS: Ibuprofen 600 MG Tab PO PRN ×2 (07:18→16:58)
[2019-12-29] MEDS ORDERED: Prenatal Multivitamin with Calcium/Folic Acid/Iron Tab PO SCH (09:00)
--- NOTE | 2019-12-29 09:38 | PCM.DCSUM1 ---
Discharge Summary - Hospital Course Free Text/Narrative:: Mala is a 24 year old -0-0-1 [place] speaking female presenting at 40 5/7 weeks gestations with an MODE pf 12/23/2019 for signs of labor. Is mitigated in active labor. She underwent an epidural for labor analgesia. She had good pain relief with this. AROM was undertaken approximately half hour before she delivered to facilitate increase in contraction intensity. Very light meconium-stained amniotic fluid was noted. No particulate matter was present. She progressed steadily to complete cervical dilation by approximately 1700 hrs. She began pushing and within a few contractions and delivered a viable, fonseca, male infant with Apgars of 8 and 9, weight of 3030 g (6 pounds 10.9 ounces) and a length of 19.5 inches at 1737 hrs. On 12/28/2019. She delivered in a direct occiput anterior position over an intact perineum. The baby was placed on mom's abdomen and the nose and mouth were bulb suctioned and the baby was dried with warm blanket. Pitocin was started and run at 500 mL an hour to facilitate increase in uterine tone and decrease likelihood of uterine bleeding. The umbilical cord was allowed to pulsate for approximately 2 minutes then was clamped 2 and cut by the baby's father. Cord blood was obtained. The umbilical cord had 3 vessels present within it. The perineum and vagina were intact and no suturing was required. The placenta delivered in a Arriaza presentation at 1741 hrs., appeared intact and complete and was discarded per patient desire. Estimated blood loss was 100 mL. Patient plans to breast-feed. patient is done well. She is ambulating well. Nursing is going without problems. She has minimal lochia. She is voiding well. Epidural has worn off completely. She is desiring discharge home at 24 hours postdelivery. Condition: Good. Diagnosis: Stroke: No - Discharge Data Discharge Date: 12/29/19 Discharge Disposition: DC/Tfer W/I Hosp To Swing 61 Condition: Good - Referral to Home Health Primary Care Physician: Aristides Vogel MD - Patient Instructions Diet: Regular Diet as Tolerated (Nursing diet with increase calories and calcium as recommended) Activity: As Tolerated (No intercourse or tampons until bleeding resolves) Driving: May Drive Today Showering/Bathing: May Shower (May take a bath) Notify Provider of: Fever, Increased Pain, Swelling and Redness, Nausea and/or Vomiting - Discharge Plan Home Medications: Home Meds Vit with Ca/FA/Iron [ Plus Iron] 1 each PO DAILY tablet 07/03/18 [Rx] Referrals: Aristides Vogel MD [Primary Care Provider] - - Discharge Summary/Plan Comment DC Time >30 min.: No Discharge Summary/Plan Comment: Discharge instructions: 1. Discharge home 2. Diet, activity and follow-up discussed with patient. Recommend nursing diet with increased calories and calcium. 3. Precautions given concern increased pain, bleeding, temperature, signs/symptoms of DVT/PE. 4. Medications per home medication was printed, discussed with and given to the patient. 5. Return to clinic-Dr. Vogel[facility] in 2 weeks. Diagnosis: Term -delivered Condition: Good - Patient Data Vitals - Most Recent: Last Vital Signs Temp 36.7 C 12/29/19 03:11 Pulse 64 12/29/19 03:11 Resp 16 12/29/19 03:11 BP 112/56 L 12/29/19 03:11 Pulse Ox 97 12/29/19 03:11 Weight - Most Recent: 73.89 kg I&O - Last 24 hours: Intake & Output 12/28/19 12/29/19 12/29/19 22:59 06:59 14:59 Intake Total 3620 Output Total 1100 Balance 2520 Lab Results - Last 24 hrs: Laboratory Results - last 24 hr 12/28/19 12/28/19 12/28/19 Range/Units 10:25 10:25 10:25 WBC 12.87 H (3.98-10.04) K/mm3 RBC 4.43 (3.98-5.22) M/mm3 Hgb 11.5 (11.2-15.7) gm/dl Hct 36.9 (34.1-44.9) % MCV 83.3 D (79.4-94.8) fl MCH 26.0 (25.6-32.2) pg MCHC 31.2 L (32.2-35.5) g/dl RDW Std Deviation 41.8 (36.4-46.3) fL Plt Count 246 (182-369) K/mm3 MPV 11.8 (9.4-12.3) fl Neut % (Auto) 74.0 H (34.0-71.1) % Lymph % (Auto) 17.2 L (19.3-51.7) % [place] % (Auto) 5.8 (4.7-12.5) % Eos % (Auto) 1.5 (0.7-5.8) Baso % (Auto) 0.6 (0.1-1.2) % Neut # (Auto) 9.51 H (1.56-6.13) K/mm3 Lymph # (Auto) 2.22 (1.18-3.74) K/mm3 [place] # (Auto) 0.75 H (0.24-0.36) K/mm3 Eos # (Auto) 0.19 (0.04-0.36) K/mm3 Baso # (Auto) 0.08 (0.01-0.08) K/mm3 Manual Slide Review Normal smear RPR Non-reactive (NONREACTIVE) COVID-19 ([facility]) (NEGATIVE) Blood Type O POSITIVE Gel Antibody Screen Negative 12/28/19 Range/Units 15:35 WBC (3.98-10.04) K/mm3 RBC (3.98-5.22) M/mm3 Hgb (11.2-15.7) gm/dl Hct (34.1-44.9) % MCV (79.4-94.8) fl MCH (25.6-32.2) pg MCHC (32.2-35.5) g/dl RDW Std Deviation (36.4-46.3) fL Plt Count (182-369) K/mm3 MPV (9.4-12.3) fl Neut % (Auto) (34.0-71.1) % Lymph % (Auto) (19.3-51.7) % [place] % (Auto) (4.7-12.5) % Eos % (Auto) (0.7-5.8) Baso % (Auto) (0.1-1.2) % Neut # (Auto) (1.56-6.13) K/mm3 Lymph # (Auto) (1.18-3.74) K/mm3 [place] # (Auto) (0.24-0.36) K/mm3 Eos # (Auto) (0.04-0.36) K/mm3 Baso # (Auto) (0.01-0.08) K/mm3 Manual Slide Review RPR (NONREACTIVE) COVID-19 ([facility]) Negative (NEGATIVE) Blood Type Gel Antibody Screen Med Orders - Current: Current Medications Acetaminophen (Tylenol) 650 mg PO Q4H PRN PRN Reason: mild pain or fever Last Admin: 12/29/19 03:07 Dose: 650 mg Documented by: Benzocaine/Menthol (Dermoplast Pain Relief [place]) 0 gm TOP ASDIRECTED PRN PRN Reason: Perineal Comfort Measure Docusate Sodium (Colace) 100 mg PO BID PRN PRN Reason: Constipation Last Admin: 12/29/19 09:35 Dose: 100 mg Documented by: Ibuprofen (Motrin) 600 mg PO Q4H PRN PRN Reason: Mild pain or fever Last Admin: 12/29/19 07:18 Dose: 600 mg Documented by: Prenat Multivit/[place]/Iron/Folic Ac ( Plus Iron) 1 each PO DAILY LISA Last Admin: 12/29/19 09:35 Dose: 1 each Documented by: Tanna Vazquez ([facility]) 1 pad TOP ASDIRECTED PRN PRN Reason: Perineal Comfort Measure Discontinued Medications Diphenhydramine HCl (Benadryl) 25 mg IVPUSH Q6H PRN PRN Reason: pruritis Ephedrine Sulfate (Ephedrine Sulfate) 5 mg IVPUSH ASDIRECTED PRN PRN Reason: Hypotension Fentanyl (Sublimaze) 100 mcg EPIDUR Q3H PRN PRN Reason: Pain Last Admin: 12/28/19 14:55 Dose: 100 mcg Documented by: Fentanyl/Bupivacaine HCl (Fentanyl/Bupivacaine/Ns 2 Mcg-0.125% 100 Ml) 100 ml EPIDUR ASDIRECTED PRN PRN Reason: Pain Last Admin: 12/28/19 14:56 Dose: 100 ml Documented by: Lactated Ringer's (Ringers, Lactated) 1,000 mls @ 100 mls/hr IV ASDIRECTED LISA Last Admin: 12/28/19 15:22 Dose: 100 mls/hr Documented by: Oxytocin/Lactated Ringer's (Pitocin In Lr 10 Units/1,000 Ml) 10 unit in 1,000 mls @ 12 mls/hr IV TITRATE LISA; Protocol Oxytocin/Lactated Ringer's (Pitocin In Lr 10 Units/1,000 Ml) 10 unit in 1,000 mls @ 500 mls/hr IV .CONTINUOUS LISA Last Admin: 12/28/19 18:50 Dose: 500 mls/hr Documented by: Nalbuphine HCl (Nubain) 10 mg IVPUSH Q2H PRN PRN Reason: Pain Sodium Chloride (Saline Flush) 10 ml FLUSH ASDIRECTED PRN PRN Reason: Keep Vein Open
--- NOTE | 2019-12-29 11:24 | PCM48HPAN ---
Post Anesthesia Note - EVALUATION WITHIN 48HRS OF ANESTHETIC Vital Signs in Normal Range: Yes Patient Participated in Evaluation: Yes Respiratory Function Stable: Yes Airway Patent: Yes Cardiovascular Function Stable: Yes Hydration Status Stable: Yes Pain Control Satisfactory: Yes Nausea and Vomiting Control Satisfactory: Yes Mental Status Recovered: Yes Vital Signs: Last Vital Signs Temp 36.4 C 12/29/19 09:41 Pulse 65 12/29/19 09:41 Resp 16 12/29/19 09:41 BP 114/60 12/29/19 09:41 Pulse Ox 98 12/29/19 09:41
[2019-12-30] MEDS: Acetaminophen 325 MG Tab PO PRN (01:09)
== END 2019-12-30 08:10 | disposition home or self-care (01) | DRG 807 ==
LOC: JD.OB 09:32 → JD.OBCHECK 09:32 → JD.OB 10:03 → OBSVTOIN 17:37 → JD.OB 17:38 → EDSTATUS 12-30 09:27
PROVIDERS: ADMIT Obstetrics & Gynecology; ATTEND Obstetrics & Gynecology
PROC: 10E0XZZ Delivery of Products of Conception, External Approach (ICD-10-PCS; principal; 2019-12-28)
PROC: 10907ZC Drainage of Amniotic Fluid, Therapeutic from Products of Conception, Via Natural or Artificial Opening (ICD-10-PCS; 2019-12-28)
PROC: 3E0R3BZ Introduction of Anesthetic Agent into Spinal Canal, Percutaneous Approach (ICD-10-PCS; 2019-12-28)
DX: O48.0 Post-term pregnancy (principal); Z37.0 Single live birth; O77.0 Labor and delivery complicated by meconium in amniotic fluid; O69.1XX0 Labor and delivery complicated by cord around neck, with compression, not applicable or unspecified; Z3A.40 40 weeks gestation of pregnancy; Z11.59 Encounter for screening for other viral diseases
CPT/HCPCS: 01967; 36415; 51702; 59025; 59409; 85025; 86592; 86850; 86900; 86901; A9270-GY; J2590; J3010; J3490; J7120; U0002

== ENCOUNTER 2020-02-02 14:08 | Emergency (ER) | payer OTHER, SELFPAY ==
--- NOTE | 2020-02-02 16:18 | EDM.PDOC ---
ED HPI GENERAL MEDICAL PROBLEM - General Chief Complaint: Eye Problems Stated Complaint: BLURRED VISION Time Seen by Provider: 02/02/20 16:08 - History of Present Illness INITIAL COMMENTS - FREE TEXT/NARRATIVE: 24-year-old female presents the emergency room with blurry vision. This is been going on for the last couple of weeks. This correlates with the time that her glasses broke. The patient has had some vision problems for about the last 6 years where she required wearing glasses. Patient denies any other problems at this point. She does not have any hurting occasionally in the evenings she gets a little bit of discomfort in her eyes. But this is fairly mild. She has had no redness or drainage from her eyes does not have a foreign body sensation. - Related Data Allergies Allergy/AdvReac Type Severity Reaction Status Date / Time No Known Allergies Allergy Verified 12/28/19 09:40 Home Meds: Home Meds . 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: Social & Family History - Family History Family Medical History: Noncontributory - Tobacco Use Smoking Status *Q: Never Smoker - Caffeine Use Caffeine Use: Reports: None - Recreational Drug Use Recreational Drug Use: No ED ROS GENERAL - Review of Systems Review Of Systems: See Below Constitutional: Reports: No Symptoms HEENT: Reports: No Symptoms Respiratory: Reports: No Symptoms Cardiovascular: Reports: No Symptoms GI/Abdominal: Reports: No Symptoms Neurological: Reports: No Symptoms ED EXAM GENERAL W FULL EYE - Physical Exam Exam: See Below Exam Limited By: No Limitations General Appearance: Alert, No Apparent Distress Eye Exam: Bilateral Eye: EOMI, Normal Inspection, PERRL Visual Acuity (L) 20/: 40 Conjunctiva & Sclera: Bilateral: Normal Appearance Cornea Exam: Bilateral: Normal Appearance Extraocular Movements: Bilateral: Intact Pupillary Reaction: Bilateral: Brisk Anterior Chamber: Bilateral: Normal Appearance Comments: Deformity of the left her right she can see 3 fingers at 20 feet her right eye is much worse than her left and she is not wearing her glasses for this exam Ears: Normal External Exam, Normal Canal, Hearing Grossly Normal, Normal TMs Nose: Normal Inspection, Normal Mucosa, No Blood Throat/Mouth: Normal Inspection, Normal Lips, Normal Teeth, Normal Gums, Normal Oropharynx, Normal Voice, No Airway Compromise Head: Atraumatic, Normocephalic Neck: Normal Inspection, Supple, Non-Tender, Full Range of Motion Respiratory/Chest: No Respiratory Distress, Lungs Clear, Normal Breath Sounds, No Accessory Muscle Use, Chest Non-Tender Cardiovascular: Normal Peripheral Pulses, Regular Rate, Rhythm, No Edema, No Gallop, No JVD, No Murmur, No Rub Course - Vital Signs Last Recorded V/S: Last Vital Signs Temp 36.2 C 02/02/20 14:38 Pulse 61 02/02/20 14:38 Resp 20 02/02/20 14:38 BP 101/66 02/02/20 14:38 Pulse Ox 97 02/02/20 14:38 - Re-Assessments/Exams Free Text/Narrative Re-Assessment/Exam: 02/02/20 16:25 It sure sure sounds like the patient needs to get her glasses fixed or replaced. 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 For your vision issues you need to be seen by an slicing machine operator/tender. Sepsis Event Note (ED) - Evaluation Sepsis Screening Result: No Definite Risk - Focused Exam Vital Signs: Vital Signs Temp Pulse Resp BP Pulse Ox 02/02/20 14:38 36.2 C 61 20 101/66 97
== END 2020-02-02 16:32 | disposition home or self-care (01) ==
LOC: JD.ED 14:08
DX: H54.7 Unspecified visual loss (principal)
CPT/HCPCS: 99282; 99283

== ENCOUNTER 2025-04-24 00:35 | Inpatient (IN) | payer SELFPAY ==
[2025-04-24] MEDS ORDERED: Ondansetron 4 MG/2 ML SDV IVPUSH PRN (01:29)
[2025-04-24] MEDS ORDERED: Nalbuphine 10 MG/1 ML Vial IVPUSH PRN (01:29)
[2025-04-24] MEDS: Lactated Ringers 1,000 ML IV SCH (01:35)
[2025-04-24] MEDS ORDERED: ePHEDrine 50 MG/ML SDV IVPUSH PRN (01:52)
[2025-04-24] MEDS ORDERED: diphenhydrAMINE 50 MG/ML SDV IVPUSH PRN (01:52)
[2025-04-24 01:56] LABS: BASOPHILS ABSOLUTE AUTO 0.1 K/mm3 (0.0-0.2); BASOPHILS PERCENT AUTO 0.7 % (0.0-1.0); EOSINOPHILS ABSOLUTE AUTO 0.1 K/mm3 (0.0-0.4); EOSINOPHILS PERCENT AUTO 1.1 % (0.0-6.0); IMMATURE GRAN ABSOLUTE AUTO 0.16 K/mm3 (0.00-0.05); IMMATURE GRAN PERCENT AUTO 1.3 % (0.0-0.4); LYMPHOCYTES ABSOLUTE AUTO 2.8 K/mm3 (1.0-4.8); LYMPHOCYTES PERCENT AUTO 23.1 % (24.0-44.0); MEAN PLATELET VOLUME 11.4 fl (9.4-12.3); MONOCYTES ABSOLUTE AUTO 0.8 K/mm3 (0.0-0.8); MONOCYTES PERCENT AUTO 6.4 % (0.0-8.0); NEUTROPHILS ABSOLUTE AUTO 8.1 K/mm3 (1.8-7.7); NEUTROPHILS PERCENT AUTO 67.4 % (41.0-71.0); NRBC ABSOLUTE 0.00 (0.00-0.02); NRBC PERCENT 0.0 % (0.0-0.2); PLATELET COUNT,PLT 207 K/mm3 (150-400); RED BLOOD CELL COUNT 4.24 M/mm3 (4.10-5.30); WHITE BLOOD CELL COUNT,WBC 12.05 K/mm3 (3.9-11.3)
[2025-04-24] MEDS: Bupivacaine/fentaNYL/NS 100 ML Bag EPIDUR PRN (02:31)
[2025-04-24] MEDS: fentaNYL 100 MCG/2 ML SDV EPIDUR PRN (02:32)
[2025-04-24] MEDS: Oxytocin/0.9 % Sodium Chloride 30 UNIT/500 ML BAG IV SCH (11:10)
[2025-04-24] MEDS ORDERED: Oxytocin/0.9 % Sodium Chloride 30 UNIT/500 ML BAG IV SCH (12:42)
[2025-04-24] MEDS: Witch Hazel Medicated Pads 40/Jar TOP PRN (13:29)
[2025-04-24] MEDS: Benzocaine/Menthol 20%-0.5% Spray 78 GM Cannister TOP PRN (13:29)
[2025-04-24] MEDS ORDERED: Magnesium Hydroxide 400 MG/5 ML Susp 30 ML Cup PO PRN (21:00)
[2025-04-25] MEDS: Prenatal Multivitamin with Calcium/Folic Acid/Iron Tab PO SCH (10:22)
== END 2025-04-25 17:33 | disposition home or self-care (01) | DRG 807 ==
LOC: JD.OBCHECK 00:35 → JD.OB 00:38 → JD.OBCHECK 03:56 → JD.OB 03:56 → OBSVTOIN 11:11 → JD.OB 11:12
PROVIDERS: ADMIT Obstetrics & Gynecology; ATTEND Obstetrics & Gynecology
PROC: 10E0XZZ Delivery of Products of Conception, External Approach (ICD-10-PCS; principal; 2025-04-24)
PROC: 10907ZC Drainage of Amniotic Fluid, Therapeutic from Products of Conception, Via Natural or Artificial Opening (ICD-10-PCS; 2025-04-24)
PROC: 0HQ9XZZ Repair Perineum Skin, External Approach (ICD-10-PCS; 2025-04-24)
PROC: 3E0R3BZ Introduction of Anesthetic Agent into Spinal Canal, Percutaneous Approach (ICD-10-PCS; 2025-04-24)
PROC: 00HU33Z Insertion of Infusion Device into Spinal Canal, Percutaneous Approach (ICD-10-PCS; 2025-04-24)
DX: O77.0 Labor and delivery complicated by meconium in amniotic fluid (principal); Z37.0 Single live birth; O69.81X0 Labor and delivery complicated by cord around neck, without compression, not applicable or unspecified; O70.0 First degree perineal laceration during delivery; Z3A.39 39 weeks gestation of pregnancy
CPT/HCPCS: 36415; 51702; 59025; 59409; 85025; 86592; 86850; 86900; 86901; A9270-GY; J0665; J3010; J3490; J7120; J7999